=== PATIENT | female | born 1965 | race Caucasian/White ===

== ENCOUNTER 2025-01-29 06:02 | Emergency (ER) | payer OTHER, SELFPAY ==
[2025-01-29] VITALS (10 sets, daily range): BP systolic 105–132; BP diastolic 55–95; PULSE 62–81; BMI 28.9
[2025-01-29 06:31] LABS: % Basophils 0.3 % (0-2); % Eosinophils 0.1 % (0-6); % Immature Granulocytes 0.3 % (0-0.5); % Lymphocytes 13.4 % (20.5-51.1); % Neutrophils 81.9 % (42.2-75.2); Absolute Lymphocytes 1.4 10^3/uL (1.2-3.4); Absolute Monocytes 0.4 10^3/uL (0.1-0.6); Absolute Neutrophils 8.5 10^3/uL (1.4-6.5); Hemoglobin 12.9 g/dL (12.0-16.0); Mean Corp Hgb Conc. 33.9 g/dL (33.0-37.0); Mean Corpuscular Hgb 31.5 pg (27.0-31.0); Mean Corpuscular Volume 92.9 fL (81.0-99.0); Mean Platelet Volume 9.8 fL (7.4-10.4); Nucleated Red Blood Cells % 0 %; Platelet Count 272 10^3/uL (130-400); Red Blood Cell Count 4.09 10^6/uL (4.20-5.40); Red Cell Dist. Width 13.1 % (11.5-14.5); White Blood Cell Count 10.4 10^3/uL (4.8-10.8)
[2025-01-29 06:42] LABS: HCG, Serum Qualitative Screen Negative
[2025-01-29 06:45] LABS: ALT (SGPT) 15 U/L (0-35); AST (SGOT) 19 U/L (14-36); Albumin 4.1 g/dl (3.5-5.0); Alkaline Phosphatase 108 U/L (38-126); Blood Urea Nitrogen 23 mg/dl (7-17); Carbon Dioxide 27 mmol/L (22-30); Chloride 111 mmol/L (98-107); Estimated Creatinine Clearance 74 ml/min; Glucose 108 mg/dl (70-99); Lipase 194 U/L (23-300); Potassium 4.1 mmol/L (3.5-5.1); Sodium 143 mmol/L (135-145); Total Bilirubin 0.4 mg/dl (0.2-1.3); Total Protein 6.6 g/dl (6.3-8.2); eGFR > 60.00
--- NOTE | 2025-01-29 06:54 | ED.GENMED ---
History of Present Illness
General
Chief Complaint: Abdominal Symptoms
Source: patient
Exam Limitations: none
Time Seen by Provider: 01/29/25 06:39
Nursing documentation reviewed up to this point in time: agreed with
History of Present Illness
History of Present Illness:
Patient with history of hypothyroidism on levothyroxine, presents to ED secondary to sudden onset of abdominal cramping associated with nausea sensation while she was at work last night. Patient reports going to the bathroom to try to throw up, in
hopes of feeling better, when she became sweaty and dizzy. Patient states that she may have passed out for brief period. When she woke up, she called 911. Patient received Zofran en route to the hospital, with improvement in symptoms. At the
time of evaluation ED, patient is without any complaints. Denies previous history of similar symptoms. Patient reports having had chicken fingers and lower, prior to going to work. Denies recent illness. Denies recent change in medications or
diet. Denies smoking or drinking alcohol. Denies recent travel or surgery. Denies back pain. Denies family history of heart disease.
Review of Systems
Review of Systems
Allergies reviewed?: Yes
All Other Systems: ROS reviewed and negative except as documented in HPI and ROS
Constitutional: Reports no symptoms; Denies fever
Respiratory: Reports no symptoms; Denies trouble breathing
Cardiac: Reports diaphoresis and syncope; Denies chest pain or palpitations
ABD/GI: Reports abdominal pain, nausea, vomiting and diarrhea
Musculoskeletal: Reports no symptoms
Skin: Reports no symptoms
Neurological: Reports dizzy
Phy Exam
Physical Exam
Physical Exam:
Physical Exam
General: no apparent distress, not acutely ill. afebrile
Head: nc/at. eomi
Neck: supple. no meningeal signs
Heart: s1/s2 regular rate and rhythm. no murmur
Lungs: no acute respiratory distress. clear bilaterally
Abdomen: normal bowel sounds. not tender.
Neuro: alert and oriented x 3. no focal neurological deficits
Skin: no rash
Psychiatric: well kept. interactive and cooperative
Extremities: no edema. no calf tenderness.
Course
Orders/Labs/Results
Orders:
Orders
01/29/25 06:05
Electrocardiogram (*1) Urgent
Reason for Study: Abdominal Pain
01/29/25 06:06
EKG- Treatment ONCE
Test Result ONCE
01/29/25 06:17
Complete Blood Count/With Diff Urgent
Comprehensive Metabolic Panel Urgent
Free T4 Urgent
HCG, Serum Qualitative Screen Urgent
Lipase Urgent
Magnesium Urgent
Comment: ADD ON
TSH Reflex To Free T4 Urgent
Comment: ADD ON
01/29/25 06:55
Orthostatic VS- Treatment ONCE
0.9% Sodium Chloride 500 ml [Nss] 500 ml IV BOLUS
01/29/25 06:56
Add On- LAB Urgent
Tests Added?: magnesium, TSH to reflex Free T4
01/29/25 09:14
0.9% Sodium Chloride 500 ml [Nss] 500 ml IV BOLUS
0.9% Sodium Chloride 500 ml [Nss] 500 ml IV BOLUS
Ketorolac [Toradol] 15 mg IV NOW STA
Pantoprazole [Protonix IV] 40 mg IV NOW STA
Abnormal Lab Results
01/29/25
06:17
RBC 4.09 L 10^6/uL
(4.20-5.40)
MCH 31.5 H pg
(27.0-31.0)
Absolute Neuts (auto) 8.5 H 10^3/uL
(1.4-6.5)
Neutrophils % 81.9 H %
(42.2-75.2)
Lymphocytes % 13.4 L %
(20.5-51.1)
Chloride 111 H mmol/L
(98-107)
BUN 23 H mg/dl
(7-17)
Glucose 108 H mg/dl
(70-99)
TSH (Reflex) 0.14 L uIU/ml
(0.47-4.68)
01/29/25 06:17
01/29/25 06:17
Vital Signs
Initial and Last Documented VS:
Initial Vital Signs
Pulse Resp Pulse Ox
63 15 97
01/29/25 06:04 01/29/25 06:04 01/29/25 06:04
Last Documented Vital Signs
Temp Pulse Resp BP Pulse Ox
98.2 F 70 13 112/75 98
01/29/25 06:07 01/29/25 10:00 01/29/25 10:00 01/29/25 10:00 01/29/25 09:45
MDM/Problems Addressed
MDM/Problems Addressed:
Patient reports significant improvement of symptoms after treatment. Patient otherwise remains afebrile, hemodynamically stable, and nontoxic-appearing. Patient's presenting symptoms likely secondary to nonspecific viral illness versus food
reaction. Patient feels comfortable going home at this time, with recommendation to continue hydration at home, as well as PCP follow-up. Return precautions provided. Patient expressed understanding at time of discharge.
*EKG
Interpreted by ED Provider?: Yes
EKG Intrepretation Date: 01/29/25
Heart Rate: 58
Rate: bradycardiac
Rhythm: sinus
[place]: normal axis
QRS Pattern: normal QRS
*Critical Care Note
Total Time (30-74mins, 75-104mins- exclusive of procedures): Not Applicable
ED Attending Note
-
Portions of this chart may have been created with voice recognition software.� Occasional wrong word or��sound alike� substitutions may have occurred due to the inherent limitations of voice recognition software.
Discharge Plan
Departure
Patient Disposition: Home (Routine Discharge)
Date of Disposition: 01/29/25
Time of Disposition: 10:22
Patient with high blood pressure during this ER visit?: No
Condition: Good
Discharge Problem:
Diarrhea
Instructions: Diarrhea in teens and adults
Prescriptions:
New
ondansetron 4 mg Tablet,Disintegrating
4 mg PO TIDPRN PRN (Reason: nausea/vomiting) Qty: 12 0RF
No Action
levothyroxine 200 mcg Tablet
200 mcg PO DAILY
Referrals:
Anjana Matthews, DO [Family Provider] -
Stand Alone Forms: Return to Work
Activity Restrictions/Additional Instructions:
As discussed, please follow-up with your primary care physician for reevaluation. Please consider return to ED with worsening symptoms. Your prescription has been sent electronically to [facility] pharmacy in the [place].
Interventions
Interventions:
*Risk Screen - Suicide Last Done: 01/29/25 06:07
*General Assessment Last Done: 01/29/25 06:07
*Neglect/Abuse Screening Last Done: 01/29/25 06:07
*ED- Fall Risk Assessment Last Done: 01/29/25 06:07
*ED COVID-19 Vaccine History Last Done: 01/29/25 06:07
*Nursing Disposition Last Done: 01/29/25 10:48
TJ-Gbltxk-Madhrpgkbq Assessment Last Done: 01/29/25 06:24
Discharge Date and Time
Discharge Date/Time: 01/29/25 10:50
Print Language: DOMINICAN
[2025-01-29 07:12] LABS: Magnesium 2.1 mg/dl (1.6-2.3)
--- NOTE | 2025-01-29 07:15 | EDRN ---
Pt OOB to BR at this time.
[2025-01-29] MEDS: NSS 500 IV ×2 (07:23→09:14)
[2025-01-29 08:04] LABS: TSH Reflex To Free T4 0.14 uIU/ml (0.47-4.68)
[2025-01-29 08:33] LABS: Free T4 1.71 ng/dl (0.78-2.19)
--- NOTE | 2025-01-29 08:58 | EDRN ---
During orthostat vs pt's pain became very crampy w/ nausea and increased from 2/[address] Contreras informed of increased cramping pain in abd and orthostatic vs.
--- NOTE | 2025-01-29 09:05 | EDRN ---
Dr. Contreras in to see pt at this time.
[2025-01-29] MEDS: PROTONIX IV 40 MG IV (09:18)
[2025-01-29] MEDS: TORADOL 15 MG IV (09:18)
--- NOTE | 2025-01-29 09:44 | EDRN ---
POt went to BR, stool specimen container in toilet though pt only voided, no BM.
--- NOTE | 2025-01-29 10:16 | EDRN ---
Pt has not been up to BR since medicated for pain so no stool spec has been obtained.
--- NOTE | 2025-01-29 10:47 | EDRN ---
Pt has had no BM since stool spec was requested.
== END 2025-01-29 10:50 | disposition home or self-care (01) ==
LOC: EMR 06:02
PROVIDERS: Emergency Medicine; EMERGENCY PHYSICIAN Emergency Medicine; FAMILY PHYSICIAN Family Medicine
DX: R19.7 Diarrhea, unspecified (principal); E03.9 Hypothyroidism, unspecified; Z79.899 Other long term (current) drug therapy
CPT/HCPCS: 99284; 96374; 96375; 96361; 80053; 83690; 83735; 84439; 84443; 84703; 85025; 93005